=== PATIENT | female | born 1945 | race Caucasian/White ===

== ENCOUNTER → 2017-03-01 | Outpatient (CLI) | payer MEDICARE, OTHER ==
--- NOTE | 2017-03-04 10:03 | MM ---
Reason for exam: screening (asymptomatic). Last mammogram was performed 3 years and 1 month ago. History: Patient is postmenopausal. Physical Findings: A clinical breast exam by your physician is recommended on an annual basis and results should be correlated with mammographic findings. MG 3D Screening Mammo W/Cad Bilateral CC and MLO view(s) were taken. Prior study comparison: January 22, 2014, bilateral MG screening mammo w CAD. August 22, 2012, mammogram, performed at [facility]. The breast tissue is heterogeneously dense. This may lower the sensitivity of mammography. Finding: There are increased grouped/clustered calcifications in the lower inner quadrant of the left breast. Increase in number of calcifications since January 22, 2014 and August 22, 2012. ASSESSMENT: Incomplete: need additional imaging evaluation, BI-RAD 0 RECOMMENDATION: Special view mammogram of the left breast. [facility] will attempt to contact patient to return for supplemental views.
== END | disposition home or self-care (01) ==
LOC: RADMAMWWP 08:43
PROVIDERS: ATTEND Family Medicine
DX: Z12.31 Encounter for screening mammogram for malignant neoplasm of breast (principal)
CPT/HCPCS: 77063; G0202

== ENCOUNTER → 2017-04-11 | Day surgery (SDC) | payer MEDICARE, OTHER ==
[2017-04-11 07:42] VITALS: RESP 16; BMI 34.7
[2017-04-11 08:46] VITALS: BP 173/73; PULSE 91; TEMP 97.8
--- NOTE | 2017-04-11 09:07 | PCN ---
PROCEDURE NOTE PREPROCEDURE DIAGNOSIS: POSTPROCEDURE DIAGNOSIS: PROCEDURE: Stereotactic core biopsy of the left breast. INDICATIONS: Patient is a 72-year-old white female who presented with a mammographic abnormality in her left breast. The lesion is in the inferior medial aspect of the left breast. No radiographic lesions of concern were identified in the right breast. The patient on physical examination did not have any dominant masses or nodules of concern on multi-positional exam of either breast nor did she have any adenopathy of concern. She was scheduled for a stereotactic core biopsy of the left breast. PROCEDURE: The patient was taken to the stereotactic core biopsy room and a stereotactic core biopsy was performed. The location of the lesion was in the inferior medial left breast. The approach used to target the lesion was medial lateral from the medial side. A 9-gauge vacuum biopsy needle was utilized to obtain the specimens after the lesion had been targeted. It should be noted that the skin was prepped using Betadine and 1% lidocaine was used to anesthetize the area of concern. The 9-gauge vacuum biopsy needle was driven to the correct coordinates. Multiple core biopsies were obtained, approximately 8. The specimen radiograph revealed the area of concern had been obtained and a secure daren was placed. Pre-fire and post-fire films were obtained. The specimen was sent to pathology. Patient tolerated procedure in stable condition. She will follow with Dr. Tidwell in 1 week. MMODL / IJN: [id number] /
--- NOTE | 2017-04-11 14:05 | MM ---
EXAMINATION TYPE: MG stereo VAD BX LT DATE OF EXAM: 04/11/2017 COMPARISON: Exams dating back to 01/22/2014. CLINICAL HISTORY: Calcifications of the lower inner quadrant of the left breast for which stereotactic biopsy was recommended. TECHNIQUE: Stereotactic guided core biopsy of left breast. FINDINGS: The procedure of stereotactic guided core biopsy was explained to the patient. Benefits, alternatives, and risks were discussed. An informed consent was then obtained. The shortness pathway for biopsy was chosen to target the heterogeneously calcifications at the 7:00 position in the left breast at middle depth. Of the 2 groups of adjacent calcifications the more suspicious posterior group was localized. Shortness pathway was medial lateral approach. I performed the localization, then surgeon, Dr. Contreras performed the remainder of the procedure. A vacuum assisted biopsy gun was used to obtain multiple core samples. Postprocedural biopsy marker was placed without migration. The patient tolerated the procedure well without any immediate complication. The patient was kept in the radiology department for short stay after the procedure and then discharged home in stable condition. Targeted calcifications are identified in specimen mammogram. Post biopsy mammogram shows the clip to appear in satisfactory position relative to the targeted area of concern on the preprocedure images. IMPRESSION: SUCCESSFUL, UNCOMPLICATED STEREOTACTIC GUIDED CORE BIOPSY OF LOW SUSPICION HETEROGENOUS CALCIFICATIONS AT THE 7:00 POSITION IN THE LEFT BREAST, FULL PATHOLOGY RESULTS TO FOLLOW. 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 Recommendation Follow up mammogram of the left breast in 6 months. AILYN
== END ==
LOC: RADMAMWWP 06:59
PROVIDERS: ATTEND Surgery
DX: D24.2 Benign neoplasm of left breast (principal); N62 Hypertrophy of breast; R92.8 Other abnormal and inconclusive findings on diagnostic imaging of breast; R92.1 Mammographic calcification found on diagnostic imaging of breast; N60.32 Fibrosclerosis of left breast; Z88.0 Allergy status to penicillin
CPT/HCPCS: 88305; 19081; A4648; J2001

== ENCOUNTER → 2018-08-09 | Outpatient (CLI) | payer MEDICARE, OTHER ==
--- NOTE | 2018-08-10 18:02 | MR ---
EXAMINATION TYPE: MR shoulder LT wo con DATE OF EXAM: 08/09/2018 COMPARISON: None HISTORY: Lt shoulder pain, limited ROM TECHNIQUE: Multiplanar, multisequence imaging of the left shoulder is performed without contrast. FINDINGS: Subscapularis tendon is intact. There is 8 mm degenerative cysts in the posterior glenoid. There are hypertrophic spurs of the inferior glenoid. There is shoulder joint effusion. There is minimal increa sed signal in the supraspinatus tendon at the greater tuberosity of the humerus. There is no retracti on. There is no significant subacromial impingement. There is hypertrophic spurring at the AC joint. There is no evidence of a fracture. The biceps tendon is intact. IMPRESSION: There is some hypertrophic osteoarthritis in the shoulder joint with glenoid cyst. Shoulder joint eff usion. No fracture. Hypertrophic osteoarthritis of the AC joint. Intrasubstance tear of the supraspinatus tendon without a definite full-thickness tear.
== END | disposition home or self-care (01) ==
LOC: RADMRIMAIN 08:54
PROVIDERS: ATTEND Family Medicine
DX: S46.912A Strain of unspecified muscle, fascia and tendon at shoulder and upper arm level, left arm, initial encounter (principal); M19.012 Primary osteoarthritis, left shoulder

== ENCOUNTER 2020-01-24 23:23 | Emergency (ER) | payer MEDICARE, OTHER ==
[2020-01-24 23:30] VITALS: RESP 18
--- NOTE | 2020-01-24 23:45 | ED ---
Head Injury HPI - General Chief complaint: Head Injury Stated complaint: Fall, head injury Time Seen by Provider: 01/24/20 23:32 Source: patient, family Mode of arrival: ambulatory Limitations: no limitations - History of Present Illness Initial comments: Blossom 75 her old female presents the ER today for evaluation of head injury. Patient reports she had a mechanical trip and fall falling backwards striking the back of her head on the ground. She did not lose consciousness. She is not on any antiplatelet or anticoagulant medications. She did not notice a large hematoma over a scalp and a dull headache. Patient states that she has a history of poorly controlled hypertension she is on 3 medication she has not taken her nightly doses and was noted be hypertensive on arrival. Patient denies any chest pain, palpitations or shortness of breath. - Related Data Home Medications Medication Instructions Recorded Confirmed Acetaminophen [Tylenol Extra 2 each PO Q6HR PRN 03/25/17 04/11/17 Strength] Acetaminophen/Diphenhydramine 2 each PO HS 03/25/17 04/11/17 [Tylenol PM Extra Strength] Aspirin [Adult Low Dose Aspirin EC] 81 mg PO DAILY PRN 03/25/17 04/11/17 Aspirin/Sod Bicarb/Citric Acid 1 each PO DAILY PRN 03/25/17 04/11/17 [[place] Original Tab Eff] Losartan [Cozaar] 50 mg PO DAILY 03/25/17 04/11/17 Melatonin 10 mg PO DAILY 03/25/17 04/11/17 Omeprazole 20 mg PO DAILY 03/25/17 04/11/17 Verapamil HCl [Verapamil ER] 240 mg PO DAILY 03/25/17 04/11/17 cloNIDine HCL [Catapres] 0.1 mg PO BID 03/25/17 04/11/17 metFORMIN HCL 1,000 mg PO BID 03/25/17 04/11/17 Chlorpheniramine/Dextromethorp 1 each PO DAILY 04/11/17 04/11/17 [Coricidin Hbp Cough & Cold Tab] Sulfamethox-Tmp 800-160Mg [Bactrim 1 each PO DAILY 04/11/17 04/11/17 DS 800-160 mg] Allergies/Adverse reactions: Allergies Allergy/AdvReac Type Severity Reaction Status Date / Time Penicillins Allergy Unknown Verified 01/24/20 23:40 Review of Systems ROS Statement: Those systems with pertinent positive or pertinent negative responses have been documented in the HPI. ROS Other: All systems not noted in ROS Statement are negative. Past Medical History Past Medical History: Diabetes Mellitus, GERD/Reflux, Hyperlipidemia, Hypertension History of Any Multi-Drug Resistant Organisms: None Reported Past Surgical History: Back Surgery, Section Additional Past Surgical History / Comment(s): dilatation and curretage 1996 Additional Past Anesthesia/Blood Transfusion Reaction / Comment(s): spinal was "too high had trouble breathing" Past Psychological History: No Psychological Hx Reported Smoking Status: Former smoker Past Alcohol Use History: Occasional Past Drug Use History: None Reported General Exam - General Exam Comments Initial Comments: Physical Exam GENERAL: Patient is well-developed and well-nourished. Patient is nontoxic and well-hydrated and is in no distress. HENT: Large hematoma over left occiput No midline cervical spinal tenderness EYES: PERRL, EOMI PULMONARY: Unlabored respirations. No audible rales rhonchi or wheezing was noted. CARDIOVASCULAR: There is a regular rate and rhythm without any murmurs gallops or rubs. ABDOMEN: Soft and nontender with normal bowel sounds. SKIN: Skin is clear with no lesions or rashes and otherwise unremarkable. : Deferred NEUROLOGIC: Patient is alert and oriented x3. Moving all extremities spontaneously MUSCULOSKELETAL: Normal extremities with adequate strength and full range of motion. No lower extremity swelling or edema. No calf tenderness. PSYCHIATRIC: Normal psychiatric evaluation. Limitations: no limitations Course Vital Signs 01/24/20 01/25/20 01/25/20 23:24 01:23 01:51 Temperature 98.0 F Pulse Rate 88 90 Respiratory 18 18 Rate Blood Pressure 255/91 233/92 190/80 O2 Sat by Pulse 98 98 Oximetry Medical Decision Making - Medical Decision Making Patient was seen and evaluated history is obtained from patient The patient with a mechanical fall, hematoma to the back of the head, hypertension on arrival though she missed her oral hypertensives tonight CT of the scan revealed no acute intracranial abnormalities, no skull fracture no cervical spine injury Home antihypertensives were ordered and administered, blood pressure is improving, patient is quite agitated that she still here states that she just came for head CT was to go home she can manage her blood pressure home Closed head injury was discussed with patient patient be discharged home in stable condition Disposition Clinical Impression: Closed head injury Disposition: HOME SELF-CARE Condition: Stable Instructions (If sedation given, give patient instructions): Concussion (ED) Is patient prescribed a controlled substance at d/c from ED?: No Referrals: Neno Kingsley DO [Primary Care Provider] - 1-2 days
--- NOTE | 2020-01-25 00:07 | CT ---
EXAMINATION TYPE: CT brain tomas rocha con DATE OF EXAM: 01/24/2020 COMPARISON: None HISTORY: Fall Headache. Neck pain CT DLP: 1349.3 mGycm Automated exposure control for dose reduction was used. There is large left occipital scalp hematoma measuring up to 1.5 cm in thickness. Ventricles have nor mal size. There is no mass effect nor midline shift. There is no sign of intracranial hemorrhage. The re is mild cerebral atrophy. The calvarium is intact. Cervical vertebra show some straightening. There is no evidence of cervical spine fracture. There is mild degenerative spurring of the endplates. Facet joints are intact. There is normal aeration of the mastoid sinuses. IMPRESSION: Left occipital scalp hematoma. No acute intracranial abnormality. Brain appears normal for age. Minor degenerative disc changes in the cervical spine. No fracture.
[2020-01-25] MEDS ORDERED: clonazePAM 0.5 MG TAB PO STA (00:24)
[2020-01-25] MEDS ORDERED: cloNIDine HCL 0.1 MG TAB PO STA (00:26)
[2020-01-25] MEDS ORDERED: VERAPAMIL SR 240 MG TABLET.ER PO STA (00:27)
[2020-01-25] MEDS ORDERED: LOSARTAN 50 MG TAB PO STA (00:27)
[2020-01-25 01:51] VITALS: BP 190/80
[2020-01-25 02:18] VITALS: PULSE 86; TEMP 98.3
== END 2020-01-25 02:18 | disposition home or self-care (01) ==
LOC: EC 23:23
DX: S00.83XA Contusion of other part of head, initial encounter (principal); I10 Essential (primary) hypertension; E11.9 Type 2 diabetes mellitus without complications; K21.9 Gastro-esophageal reflux disease without esophagitis; R45.1 Restlessness and agitation; Z79.899 Other long term (current) drug therapy; Z79.890 Hormone replacement therapy; Z79.84 Long term (current) use of oral hypoglycemic drugs; Z88.0 Allergy status to penicillin; Z87.891 Personal history of nicotine dependence; W01.198A Fall on same level from slipping, tripping and stumbling with subsequent striking against other object, initial encounter; Y92.009 Unspecified place in unspecified non-institutional (private) residence as the place of occurrence of the external cause
CPT/HCPCS: 70450; 72125; 99283

== ENCOUNTER → 2020-02-26 | Outpatient (CLI) | payer MEDICARE, OTHER ==
--- NOTE | 2020-02-26 14:15 | US ---
EXAMINATION TYPE: US carotid duplex BILAT DATE OF EXAM: 02/26/2020 COMPARISON: Previous exam 01/22/2014 CLINICAL HISTORY: G45.9 Transient cerebral ischemic...... EXAM MEASUREMENTS: RIGHT: Peak Systolic Velocity (PSV) cm/sec ----- Right CCA: 76.4 ----- Right ICA: 120 ----- Right ECA: 112.8 ICA/CCA ratio: 1.6 RIGHT: End Diastole cm/sec ----- Right CCA: 11.0 ----- Right ICA: 21.2 ----- Right ECA: 0 LEFT: Peak Systolic Velocity (PSV) cm/sec ----- Left CCA: 95.3 ----- Left ICA: 115.5 ----- Left ECA: 167.8 ICA/CCA ratio: 1.2 LEFT: End Diastole cm/sec ----- Left CCA: 17.6 ----- Left ICA: 24.8 ----- Left ECA: 0 VERTEBRALS (direction of flow): Right Vertebral: Antegrade Left Vertebral: Antegrade Rhythm: Normal Moderate/severe amount of plaque bilaterally at the carotid bulbs. Elevated velocities visualized lef t ECA Grayscale, color Doppler, spectral Doppler imaging performed of the carotid arteries. Waveform analys is does not show significant stenosis of the internal carotid arteries IMPRESSION: No hemodynamic significant stenosis of the proximal internal carotid arteries by Doppler criteria, an indirect measurement of carotid stenosis Criteria for Assigning % of Stenosis / Diameter reduction (Estimation based on the indirect measurements of the internal carotid artery velocities (ICA PSV). 1. Normal (no stenosis)=ICA PSV < 125 cm/s: ratio < 2.0: ICA EDV<40 cm/s. 2. Less than 50% stenosis=ICA PSV < 125 cm/s: ratio < 2.0: ICA EDV<40 cm/s. 3. 50 to 69% stenosis=ICA PSV of 125 to 230 cm/s: ration 2.0 ? 4.0: ICA EDV 40-100 cm/s. 4. Greater than 70% stenosis to near occlusion= ICA PSV > 230 cm/s: ratio > 4.0: ICA EDV > 100 cm/s. 5. Near occlusion= ICA PSV velocities may be low or undetectable: variable ratio and ICA EDV. 6. Total occlusion=unable to detect flow.
--- NOTE | 2020-02-26 15:41 | ECHOF ---
Referral Reason:G45.9 Transient cerebral ischemic..... MEASUREMENTS -------- HEIGHT: 154.9 cm WEIGHT: 81.2 kg BP: RVIDd: 2.7 cm (< 3.3) IVSd: 1.3 cm (0.6 - 1.1) LVIDd: 3.8 cm (3.9 - 5.3) LVPWd: 1.6 cm (0.6 - 1.1) IVSs: 1.9 cm LVIDs: 1.8 cm LVPWs: 1.6 cm LAESV Index (A-L): 28.96 ml/m Ao Diam: 2.8 cm (2.0 - 3.7) AV Cusp: 1.5 cm (1.5 - 2.6) LA Diam: 2.7 cm (2.7 - 3.8) MV EXCURSION: 13.189 mm (> 18.000) MV EF SLOPE: 55 mm/s (70 - 150) EPSS: 0.8 cm MV E Norman: 0.86 m/s MV DecT: 249 ms MV A Norman: 1.36 m/s MV E/A Ratio: 0.63 AV maxP.49 mmHg AV meanP.12 mmHg RAP: 5.00 mmHg RVSP: 18.24 mmHg FINDINGS -------- This was a technically good study. The left ventricular size is normal. There is moderate concentric left ventricular hypertrophy. O verall left ventricular systolic function is normal with, an EF between 55 - 60 %. Normal LAP Grade 1 Diastolic Dysfunction. The right ventricle is normal in size. The left atrial size is normal. Normal LA size by volume 22+/-6 ml/m2. The right atrial size is normal. Aortic valve is trileaflet and is mildly thickened. There is mild aortic valve sclerosis. Peak/me an gradient across the Aortic Valve is 13.49mmHg / 8.12mmHg. The mitral valve is normal. The mitral valve leaflets are mildly thickened. Mild mitral regurgita tion is present. The tricuspid valve appears structurally normal. Mild tricuspid regurgitation present. Right vent ricular systolic pressure is normal at < 35 mmHg. The pulmonic valve was not well visualized. The aortic root size is normal. IVC Not well visulized. There is no pericardial effusion. CONCLUSIONS -------- 1. The left ventricular size is normal. 2. There is moderate concentric left ventricular hypertrophy. 3. Overall left ventricular systolic function is normal with, an EF between 55 - 60 %. 4. Normal LAP Grade 1 Diastolic Dysfunction. 5. Aortic valve is trileaflet and is mildly thickened. 6. There is mild aortic valve sclerosis. 7. Peak/mean gradient across the Aortic Valve is 13.49mmHg / 8.12mmHg. 8. The mitral valve leaflets are mildly thickened. 9. Mild mitral regurgitation is present. 10. Mild tricuspid regurgitation present. 11. There is no pericardial effusion. ACCOUNTS PAYABLE PAYROLL COORDINATOR: Tami Garsia RDCS
== END | disposition home or self-care (01) ==
LOC: RADUSMAIN 12:40
PROVIDERS: ATTEND Family Medicine
DX: I08.3 Combined rheumatic disorders of mitral, aortic and tricuspid valves (principal); G45.9 Transient cerebral ischemic attack, unspecified; R20.2 Paresthesia of skin
CPT/HCPCS: 93306; 93880